=== PATIENT | female | born 1995 | race Two or more races ===

== ENCOUNTER 2018-12-21 05:01 | Emergency (ER) | payer MEDICAID ==
[~2018-12-21] VITALS: Ht 165.1 cm; Wt 42.0 kg
[2018-12-21] MEDS ORDERED: SODIUM CHLORIDE 0.9% 1,000 ML IV ONE (06:24)
[2018-12-21] MEDS ORDERED: KETOROLAC 30MG/ML VIAL IV STA (06:24)
[2018-12-21] MEDS ORDERED: DIPHENHYDRAMINE 50MG/ML VIAL IV ONE (06:30)
[2018-12-21] MEDS ORDERED: METOCLOPRAMIDE HCL 10MG/2ML VIAL IV ONE (06:30)
[2018-12-21 06:52] VITALS: BP 100/59
[2018-12-21 07:58] LABS: BASOPHILS % 0.8 % (0.0-2.0); EOSINOPHILS % 1.7 % (0.0-5.0); HEMATOCRIT. 35.3 % (36.0-48.0); HEMOGLOBIN. 11.9 g/dL (12.0-16.0); MEAN CORPUSCULAR HEMOGLOBIN 31.8 pg (28.0-32.0); MEAN CORPUSCULAR VOLUME 94.3 fL (81.0-99.0); MONOCYTES % 5.8 % (2.0-8.0); NEUTROPHILS % 65.7 % (40.0-76.0); PLATELET 225 x1000/uL (130-400); RED BLOOD CELL COUNT 3.74 mill/uL (4.2-5.4)
[2018-12-21 08:01] LABS: CHLORIDE 113 mEq/L (98-107)
== END 2018-12-21 08:26 | disposition home or self-care (01) ==
LOC: ER 05:01
DX: R51 Headache (principal)
CPT/HCPCS: 36415; 80048; 81025; 85025; 96374; 96375; 99283; J1200; J1885; J2765; J7030

== ENCOUNTER 2019-08-12 09:51 | Emergency (ER) | payer MEDICAID ==
[~2019-08-12] VITALS: Ht 165.1 cm; Wt 43.0 kg
[2019-08-12] MEDS ORDERED: KETOROLAC 30MG/ML VIAL IV STA (11:09)
[2019-08-12 11:28] LABS: BASOPHILS % 0.1 % (0.0-2.0); EOSINOPHILS % 0.3 % (0.0-5.0); HEMATOCRIT. 40.8 % (36.0-48.0); LYMPHOCYTES % 12.2 % (20.0-50.0); MEAN CORPUSCULAR HEMOGLOBIN 31.9 pg (28.0-32.0); MEAN CORPUSCULAR VOLUME 93.2 fL (81.0-99.0); MEAN PLATELET VOLUME 8.5 fl (7.4-10.4); MONOCYTES % 5.7 % (2.0-8.0); NEUTROPHILS % 81.7 % (40.0-76.0); PLATELET 232 x1000/uL (130-400); RED BLOOD CELL COUNT 4.38 mill/uL (4.2-5.4); RED CELL DISTRIBUTION WIDTH 13.1 % (11.6-14.6)
[2019-08-12 11:33] LABS: CHLORIDE 109 mEq/L (98-107)
[2019-08-12 11:41] LABS: PROTHROMBIN TIME 10.9 sec (9.6-11.0)
[2019-08-12 11:52] LABS: CLARITY URINE CLEAR (CLEAR); COLOR URINE YELLOW (YELLOW); KETONES URINE NEGATIVE (NEGATIVE); LEUKOCYTE ESTERASE URINE NEGATIVE (NEGATIVE); NITRITE URINE NEGATIVE (NEGATIVE); OCCULT BLOOD URINE 1+ (NEGATIVE); PH URINE 7.5 (4.5-8.0); PROTEIN URINE NEGATIVE (NEGATIVE); UROBILINOGEN URINE 0.2 E.U./dL (0.2-1.0)
[2019-08-12 11:54] LABS: HCG SCREEN NEGATIVE
[2019-08-12 14:41] VITALS: BP 95/52
== END 2019-08-12 14:46 | disposition home or self-care (01) ==
LOC: ER 10:03
DX: M79.18 Myalgia, other site (principal); R11.2 Nausea with vomiting, unspecified; R51 Headache; R63.6 Underweight; F32.9 Major depressive disorder, single episode, unspecified; F41.9 Anxiety disorder, unspecified; Z88.2 Allergy status to sulfonamides; Z91.013 Allergy to seafood
CPT/HCPCS: 36415; 80053; 81003; 84703; 85025; 85610; 96374; 99285; J1885